=== PATIENT | female | born 1980 | race African-American/Black ===

== ENCOUNTER 2016-10-05 12:52 | Emergency (ER) | payer OTHER ==
[~2016-10-05] VITALS: Ht 162.6 cm; Wt 84.8 kg
[~2016-10-05 12:52] MED LIST: MECL25TA3 PO; ONDA4TAB10 PO
[2016-10-05] MEDS ORDERED: IV NORMAL SALINE 1,000ML 1,000 ML IV ONE (13:45)
[2016-10-05 13:58] LABS: BARBITURATES NEG (NEG); BENZODIAZEPINES NEG (NEG); CANNABINOIDS POS (NEG); COCAINE NEG (NEG); METHADONE NEG (NEG); OPIATES NEG (NEG); PHENCYCLIDINE NEG (NEG)
[2016-10-05 13:59] LABS: AMPHETAMINE/METHAMPHETAMINE NEG (NEG)
[2016-10-05 14:12] LABS: BACTERIA,URINE FEW /HPF (0-FEW); BILIRUBIN,URINE NEG (NEG); CLARITY,URINE HAZY; COLOR,URINE YELLOW; GLUCOSE,URINE NEG (NEG); NITRITE,URINE NEG (NEG); RBC,URINE 0 /HPF (0-2); SQUAMOUS EPITHELIAL CELL,UR FEW /LPF; UROBILINOGEN,URINE 0.2 mg/dL (0.2 mg/dL); WBC,URINE RARE /HPF (0-4)
[2016-10-05 14:14] LABS: BASO # 0.1 x10^3/uL (0.0-0.2); BASO % 1 % (0-3); EOS # 0.1 x10^3/uL (0.0-0.7); EOS % 2 % (0-3); HEMATOCRIT 31.5 % (36.0-47.0); HEMOGLOBIN 10.6 g/dL (12.0-15.5); LYMPH # 1.7 x10^3/uL (1.0-4.8); LYMPH % 33 % (24-48); MEAN CORPUSCULAR HEMOGLOBIN 30 pg (25-35); MEAN CORPUSCULAR HGB CONC 34 g/dL (31-37); MEAN CORPUSCULAR VOLUME 88 fL (79-100); MONO # 0.3 x10^3/uL (0.0-1.1); MONO % 6 % (0-9); NEUT % 59 % (31-73); PLATELET COUNT 238 x10^3/uL (140-400); RED BLOOD COUNT 3.58 x10^6/uL (3.50-5.40); RED CELL DISTRIBUTION WIDTH 14.7 % (11.5-14.5); WHITE BLOOD COUNT 5.1 x10^3/uL (4.0-11.0)
--- NOTE | 2016-10-05 14:15 | EKG ---
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 RI6.01 Unconfirmed report Compared to ECG 07/04/2014 21:01:39 No significant changes Electronically Signed On 10-08-2016 9:53:05 CDT by Remy Mac
--- NOTE | 2016-10-05 14:18 | RAD ---
Indication: Dizziness and high blood pressure. Time of exam 1411 hours. FINDINGS: The heart size is normal. The lungs are clear. No pleural effusion or pneumothorax is identified. The pulmonary vascularity is normal. IMPRESSION: No acute abnormality detected.
[2016-10-05 14:21] LABS: CALCIUM 8.7 mg/dL (8.5-10.1); CREATININE 0.9 mg/dL (0.6-1.0); GFR 84.8; POTASSIUM 3.5 mmol/L (3.5-5.1)
[2016-10-05 15:10] VITALS: BP 137/89
--- NOTE | 2016-10-05 19:02 | ED.ADGEN ---
Past History Past Medical History: Hypertension, Hyperthyroid Past Surgical History: Alcohol Use: None Drug Use: None Adult General HPI HPI Patient is a 36-year-old woman, history of hypertension is medically managed, who presents emergency Department with a complaint of lightheadedness. Patient states that she become increasingly lightheaded are the past 3 days. She states that the sensation is worse with standing and moving from a lying to seated position. She states that she has remained well-hydrated, denies any chest pain , any shortness of breath, any nausea or vomiting, any focal weakness, numbness , tingling, vision changes, travel, procedures, ingestions, exposures, swelling extremities, rashes or other concerning symptoms. States that this is similar to when she was diagnosed with high blood pressure, however blood pressure hasn' t well controlled with oral medication. She states she is eating and drinking well. Denies any seasonal allergy or respiratory type symptoms. Denies any drugs , alcohol or cigarettes. Patient states that there is a possibility she could be . Review of Systems Review of Systems Constitutional: Denies fever or chills [] lightheadedness. Eyes: Denies change in visual acuity, redness, or eye pain [] HENT: Denies nasal congestion or sore throat [] Respiratory: Denies cough or shortness of breath [] Cardiovascular: No additional information not addressed in HPI [] GI: Denies abdominal pain, nausea, vomiting, bloody stools or diarrhea [] : Denies dysuria or hematuria [] Musculoskeletal: Denies back pain or joint pain [] Integument: Denies rash or skin lesions [] Neurologic: Denies headache, focal weakness or sensory changes [] Endocrine: Denies polyuria or polydipsia [] Current Medications Current Medications Current Medications Medications (Trade) Dose Ordered Sig/Ion Start Time Stop Time Status Last Admin Dose Admin Sodium Chloride 1,000 ml @ 1,000 mls/hr 1X ONCE 10/05/16 13:45 10/05/16 14:44 DC 10/05/16 14:15 1,000 MLS/HR Allergies Allergies Allergies Coded Allergies Type Severity Reaction Last Updated Verified No Known Drug Allergies 07/04/14 No Physical Exam Physical Exam Constitutional: Well developed, well nourished, no acute distress, non-toxic appearance. [] HENT: Normocephalic, atraumatic, bilateral external ears normal, oropharynx moist, no oral exudates, nose normal. [] Eyes: PERRLA, EOMI, conjunctiva normal, no discharge. [] Neck: Normal range of motion, no tenderness, supple, no stridor. [] Cardiovascular:Heart rate regular rhythm, no murmur, S1, S2, no rubs or gallops. [] Lungs & Thorax: Bilateral breath sounds clear to auscultation , no wheezing, rhonchi, rales. No chest or crepitus or tenderness. [] Abdomen: Bowel sounds normal, soft, no tenderness, no masses, no pulsatile masses. [] Skin: Warm, dry, no erythema, no rash. [] Back: No tenderness, no CVA tenderness. [] Extremities: No tenderness, no cyanosis, no clubbing, ROM intact, no edema. Negative Homans sign. [] Neurologic: Alert and oriented X 3, normal motor function, normal sensory function, no focal deficits noted. [] Psychologic: Affect normal, judgement normal, mood normal. [] Current Patient Data Vital Signs Vital Signs Date Time Temp Pulse Resp B/P (MAP) Pulse Ox O2 Delivery O2 Flow Rate FiO2 10/05/16 15:10 65 18 137/89 (105) 100 Room Air 10/05/16 12:55 98.5 Lab Results Laboratory Tests Test 10/05/16 13:00 10/05/16 13:55 Urine Collection Type Unknown Urine Color Yellow Urine Clarity Hazy Urine pH 5.5 Urine Specific [place] 1.020 Urine Protein Trace (NEG-TRACE) Urine Glucose (UA) Neg mg/dL (NEG) Urine Ketones (Stick) Trace mg/dL (NEG) Urine Blood Trace (NEG) Urine Nitrite Neg (NEG) Urine Bilirubin Neg (NEG) Urine Urobilinogen Dipstick 0.2 mg/dL (0.2 mg/dL) Urine Leukocyte Esterase Neg (NEG) Urine RBC 0 /HPF (0-2) Urine WBC Rare /HPF (0-4) Urine Squamous Epithelial Cells Few /LPF Urine Bacteria Few /HPF (0-FEW) Urine Mucus Mod /LPF Urine Opiates Screen Neg (NEG) Urine Methadone Screen Neg (NEG) Urine Barbiturates Neg (NEG) Urine Phencyclidine Screen Neg (NEG) Urine Amphetamine/Methamphetamine Neg (NEG) Urine Benzodiazepines Screen Neg (NEG) Urine Cocaine Screen Neg (NEG) Urine Cannabinoids Screen Pos (NEG) Urine Ethyl Alcohol Neg (NEG) White Blood Count 5.1 x10^3/uL (4.0-11.0) Red Blood Count 3.58 x10^6/uL (3.50-5.40) Hemoglobin 10.6 g/dL (12.0-15.5) L Hematocrit 31.5 % (36.0-47.0) L Mean Corpuscular Volume 88 fL (79-100) Mean Corpuscular Hemoglobin 30 pg (25-35) Mean Corpuscular Hemoglobin Concent 34 g/dL (31-37) Red Cell Distribution Width 14.7 % (11.5-14.5) H Platelet Count 238 x10^3/uL (140-400) Neutrophils (%) (Auto) 59 % (31-73) Lymphocytes (%) (Auto) 33 % (24-48) Monocytes (%) (Auto) 6 % (0-9) Eosinophils (%) (Auto) 2 % (0-3) Basophils (%) (Auto) 1 % (0-3) Neutrophils # (Auto) 3.0 x10^3uL (1.8-7.7) Lymphocytes # (Auto) 1.7 x10^3/uL (1.0-4.8) Monocytes # (Auto) 0.3 x10^3/uL (0.0-1.1) Eosinophils # (Auto) 0.1 x10^3/uL (0.0-0.7) Basophils # (Auto) 0.1 x10^3/uL (0.0-0.2) Sodium Level 139 mmol/L (136-145) Potassium Level 3.5 mmol/L (3.5-5.1) Chloride Level 105 mmol/L (98-107) Carbon Dioxide Level 25 mmol/L (21-32) Anion Gap 9 (6-14) Blood Urea Nitrogen 12 mg/dL (7-20) Creatinine 0.9 mg/dL (0.6-1.0) Estimated GFR (Cockcroft-Gault) 84.8 Glucose Level 104 mg/dL (70-99) H Calcium Level 8.7 mg/dL (8.5-10.1) Troponin I Quantitative < 0.017 ng/mL (0-0.055) EKG EKG EC: Sinus rhythm, heart rate 64 bpm, upright axis, QTC of 408, MS of 1:30 , QRS of 80, contrary normalities noted in the anterior septal leads, but no ST elevations or depressions, some flattening in lead 3 also noted, does not meet STEMI criteria. As interpreted by me. [] Radiology/Procedures Radiology/Procedures [] Impressions: [place] [id number] IMAGING REPORT Signed PATIENT: OSCAR SINGLETON ACCOUNT: [id number] : 1980 LOCATION: ER AGE: 36 SEX: F EXAM STATUS: PRE ER ORD. PHYSICIAN: SHEREE SABA DO REASON: Dizziness PROCEDURE: CHEST PA & LATERAL Indication: Dizziness and high blood pressure. Time of exam 1411 hours. FINDINGS: The heart size is normal. The lungs are clear. No pleural effusion or pneumothorax is identified. The pulmonary vascularity is normal. IMPRESSION: No acute abnormality detected. DICTATED AND SIGNED BY: SUSANNA PRADO MD DATE: 10/05/161415 CC: SHEREE SABA DO; OSIEL LOYD MD ~ Course & Med Decision Making Course & Med Decision Making Pertinent Labs and Imaging studies reviewed. (See chart for details) HCG is negative and the emergency department. Patient complaining of near- syncope, although she has no reports of chest pain, shortness of breath, or other concerning personal or family history regarding a concerning cardiac or pulmonary cause. However after discussion at bedside, due to the length patient' s symptoms will obtain laboratory studies, chest x-ray, ECG and administer IV fluids. Patient with positive orthostatics in the emergency department, so liter of normal saline, laboratory studies and imaging not reveal any evidence of concerning findings, after receiving the liter of fluid patient states that she is feeling much better, is no longer experiencing lightheadedness. Discussed with her that she also has some evidence of mild seasonal allergy symptoms, recommend use of bbuu-xyo-gedsorv medications such as fluticasone or loratadine to treat and prevent symptoms, and address the importance of staying well-hydrated, drink plenty of clear fluids. Patient voiced understanding and agreement with these instructions, states she is ready to go home at this time, is ambulating without difficulty and without recurrence of symptoms in the ED. States that she will follow-up with her primary care provider for additional evaluation as needed, and will return to the ED for concerning symptoms as discussed us. Patient discharged home in stable condition with plan as above. Final Impression Final Impression [] Problems: (1) Lightheadedness Dragon Disclaimer Dragon Disclaimer This electronic medical record was generated, in whole or in part, using a voice recognition dictation system. SHEREE SABA DO Oct 05, 2016 19:02
== END 2016-10-05 15:12 | disposition home or self-care (01) ==
LOC: ER 12:52
DX: R42 Dizziness and giddiness (principal); I10 Essential (primary) hypertension; E03.9 Hypothyroidism, unspecified
CPT/HCPCS: 36415; 71020; 80048; 80305; 80320; 81001; 81025; 84484; 85027; 93005; 96360; G0481; 99285-25; J7030

== ENCOUNTER 2016-10-09 10:18 | Emergency (ER) | payer OTHER ==
[~2016-10-09] VITALS: Ht 162.6 cm; Wt 75.7 kg
[2016-10-09 10:41] VITALS: BP 139/80
--- NOTE | 2016-10-09 10:58 | PHYS DOC ---
General Chief Complaint: ABDOMINAL PAIN Stated Complaint: N/V/D Time Seen by MD: 10:24 Source: patient Exam Limitations: no limitations Problems: History of Present Illness Initial Comments Patient is a 36-year-old female who comes the ED complaining of nausea vomiting and diarrhea. Patient states she had a pizza frozen pop or [employer] her son may last night which she didn't think was "all the way through. She her son and some others ate a cheesy only one ill today. She states she woke up this morning with epigastric discomfort and nausea, states she went to the restroom and had multiple episodes of diarrhea and vomiting. States she's had at least 15 episodes of loose watery stools she seen no blood in her stools or emesis. She denies focal abdominal pain complaints just generalized discomfort typically relieved with bowel movement or emesis. No fever chills sweats or myalgias no travel or other exotic or uncooked by mouth. No pre-arrival treatment patient is not vomiting and has no loose stools to this point in the ED. Timing/Duration: 24 hours Severity: moderate Modifying Factors: worse with eating, improves with medication Associated Symptoms: nausea/vomiting Allergies: Coded Allergies: No Known Drug Allergies (Unverified , 07/04/14) Past Medical History Medical History: no pertinent history Surgical History: no surgical history Family History Significant Family History: no pertinent family hx Review of Systems Constitutional: denies chills, denies diaphoresis, denies fever, denies malaise Respiratory: denies cough, denies shortness of breath Cardiovascular: denies chest pain, denies palpitations Gastrointestinal: see HPI Genitourinary: denies discharge, denies dysuria, denies frequency, denies hematuria Musculoskeletal: denies back pain, denies joint swelling, denies neck pain Psychiatric/Neurological: denies headache, denies numbness, denies paresthesia Physical Exam General Appearance: WD/WN, mild distress Eyes: bilateral eye normal inspection, bilateral eye PERRL, bilateral eye EOMI Ear, Nose, Throat: hearing grossly normal, normal ENT inspection, normal pharynx Neck: non-tender, supple Respiratory: normal breath sounds, no respiratory distress Cardiovascular: normal peripheral pulses, regular rate, rhythm Gastrointestinal: normal bowel sounds, soft (nondistended, generalized tenderness to palpation without rebound or guarding or mass negative McBurney negative Burnette) Back: no CVA tenderness, no vertebral tenderness Extremities: non-tender, normal inspection Neurologic/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 PHYSICIAN: CAMPOS WALKER DO REASON: n/v/d PROCEDURE: ACUTE ABDOMEN SERIES Acute abdomen series with chest, 3 views, 10/09/2016: History: Abdominal pain, nausea, vomiting, diarrhea There scattered air-fluid levels in the GI tract. These appear to lie predominantly within large bowel. The visualized bowel loops are not significantly distended. No free air is seen in the abdomen. There is no evidence of organomegaly. Lower pelvic calcifications are compatible with phleboliths. There is a mild thoracolumbar scoliosis. The heart size is normal. The lungs are clear. There is no evidence of pleural fluid. IMPRESSION: Scattered air-fluid levels in the colon compatible with history the of diarrhea and/or an ileus. DICTATED AND SIGNED BY: GABRIELLE SILVER MD DATE: 10/09/16 1132 CC: NELA MENA APRN; CAMPOS WALKER DO ~ Labs unremarkable no urine specimen submitted. I discussed findings with the patient overall reassuring. She states she is feeling much better with IV fluids and medications and is ready for discharge. She expressed agreement and understanding with the treatment plan. Departure Time of Disposition: 12:10 Disposition: 01 HOME, SELF-CARE Diagnosis: gastroenteritis, likely viral Condition: GOOD Patient Instructions: Viral Gastroenteritis, [id number] Additional Instructions: Off work through October 12, note given. Rest, no strenuous activity. Aggressive hydration with Gatorade or water. Clear liquids, advance to bland diet tomorrow slowly as tolerated. Prescription: Zofran ODT, dicyclomine take as directed. Follow-up with your doctor in 5-7 days if not better. Return to the ED with new or changing symptoms. CAMPOS WALKER DO Oct 09, 2016 10:58
[2016-10-09] MEDS ORDERED: IV NORMAL SALINE 1,000ML 1,000 ML IV SCH (10:59)
[2016-10-09] MEDS ORDERED: ONDANSETRON PF 4 MG/2 ML VIAL. IV ONE (11:30)
[2016-10-09] MEDS ORDERED: FAMOTIDINE 20 MG/2 ML VIAL IVP ONE (11:30)
--- NOTE | 2016-10-09 11:39 | RAD ---
Acute abdomen series with chest, 3 views, 10/09/2016: History: Abdominal pain, nausea, vomiting, diarrhea There scattered air-fluid levels in the GI tract. These appear to lie predominantly within large bowel. The visualized bowel loops are not significantly distended. No free air is seen in the abdomen. There is no evidence of organomegaly. Lower pelvic calcifications are compatible with phleboliths. There is a mild thoracolumbar scoliosis. The heart size is normal. The lungs are clear. There is no evidence of pleural fluid. IMPRESSION: Scattered air-fluid levels in the colon compatible with history the of diarrhea and/or an ileus.
[2016-10-09 11:41] LABS: BASO # 0.1 x10^3/uL (0.0-0.2); BASO % 1 % (0-3); EOS % 0 % (0-3); HEMATOCRIT 33.8 % (36.0-47.0); HEMOGLOBIN 11.4 g/dL (12.0-15.5); LYMPH # 1.2 x10^3/uL (1.0-4.8); LYMPH % 15 % (24-48); MEAN CORPUSCULAR HEMOGLOBIN 30 pg (25-35); MEAN CORPUSCULAR HGB CONC 34 g/dL (31-37); MEAN CORPUSCULAR VOLUME 88 fL (79-100); MONO # 0.3 x10^3/uL (0.0-1.1); MONO % 3 % (0-9); NEUT # 6.4 x10^3uL (1.8-7.7); NEUT % 81 % (31-73); PLATELET COUNT 287 x10^3/uL (140-400); RED BLOOD COUNT 3.85 x10^6/uL (3.50-5.40); RED CELL DISTRIBUTION WIDTH 14.2 % (11.5-14.5)
[2016-10-09 11:44] LABS: ALBUMIN 3.6 g/dL (3.4-5.0); ALBUMIN/GLOBULIN RATIO 0.8 (1.0-1.7); CALCIUM 8.8 mg/dL (8.5-10.1); CREATININE 0.8 mg/dL (0.6-1.0); GFR 97.1; POTASSIUM 3.6 mmol/L (3.5-5.1); TOTAL BILIRUBIN 0.1 mg/dL (0.2-1.0); TOTAL PROTEIN 8.2 g/dL (6.4-8.2)
== END 2016-10-09 12:17 | disposition home or self-care (01) ==
LOC: ER 10:18
DX: K52.9 Noninfective gastroenteritis and colitis, unspecified (principal)
CPT/HCPCS: 36415; 74022; 80053; 81025; 83690; 84484; 85027; 96361; 96374; 96375; 99285; J2405; S0028; J7030

== ENCOUNTER 2016-12-13 12:49 | Emergency (ER) | payer OTHER ==
[~2016-12-13] VITALS: Ht 162.6 cm; Wt 89.4 kg
[2016-12-13 13:00] VITALS: BP 129/79
--- NOTE | 2016-12-13 13:11 | PHYS DOC ---
Past History Past Medical History: Hypertension, Hyperthyroid Past Surgical History: Alcohol Use: None Drug Use: None Adult General Chief Complaint Chief Complaint: EYE PROBLEMS HPI HPI Patient is a 36 year old F who presents with itching on the skin around her right eye. She feels that she had an insect bite on her eyelid which has caused redness swelling and itchiness. She has no visual problems or other associated symptoms at this time Review of Systems Review of Systems Constitutional: Denies fever or chills [] Eyes: Denies change in visual acuity, redness, or eye pain [] HENT: Denies nasal congestion or sore throat [] Respiratory: Denies cough or shortness of breath [] Cardiovascular: No additional information not addressed in HPI [] GI: Denies abdominal pain, nausea, vomiting, bloody stools or diarrhea [] : Denies dysuria or hematuria [] Musculoskeletal: Denies back pain or joint pain [] Integument: Negative except history of present illness Neurologic: Denies headache, focal weakness or sensory changes [] Endocrine: Denies polyuria or polydipsia [] Current Medications Current Medications Reviewed Allergies Allergies Allergies Coded Allergies Type Severity Reaction Last Updated Verified No Known Drug Allergies 07/04/14 No Physical Exam Physical Exam Constitutional: Well developed, well nourished, no acute distress, non-toxic appearance. [] HENT: Normocephalic, atraumatic, bilateral external ears normal, oropharynx moist, no oral exudates, nose normal. [] Eyes: PERRLA, EOMI, conjunctiva normal, no discharge. [] Mild swelling and erythema of the right upper eyelid Neck: Normal range of motion, no tenderness, supple, no stridor. [] Cardiovascular:Heart rate regular rhythm, no murmur [] Lungs & Thorax: Bilateral breath sounds clear to auscultation [] Abdomen: Bowel sounds normal, soft, no tenderness, no masses, no pulsatile masses. [] Skin: Warm, dry, no erythema, no rash. [] Back: No tenderness, no CVA tenderness. [] Extremities: No tenderness, no cyanosis, no clubbing, ROM intact, no edema. [] Neurologic: Alert and oriented X 3, normal motor function, normal sensory function, no focal deficits noted. [] Psychologic: Affect normal, judgement normal, mood normal. [] EKG EKG [] Radiology/Procedures Radiology/Procedures [] Course & Med Decision Making Course & Med Decision Making Pertinent Labs and Imaging studies reviewed. (See chart for details) [] Dragon Disclaimer Dragon Disclaimer This chart was dictated in whole or in part using Voice Recognition software in a busy, high-work load, and often noisy Emergency Department environment. It may contain unintended and wholly unrecognized errors or omissions. Departure Departure: Impression: Primary Impression: Insect bite Disposition: HOME, SELF-CARE Condition: STABLE Referrals: NELA MENA APRN (PCP) Patient Instructions: Insect Bite Additional Instructions: Valeriano seen in the emergency room for an insect bite. No emergency medical condition was found. She was discharged in stable condition with recommendation to follow-up with her primary care doctor as needed Problem Qualifiers Primary Impression: Insect bite Encounter type: initial encounter Qualified Codes: W57.XXXA - Bitten or stung by nonvenomous insect and other nonvenomous arthropods, initial encounter FABRICE ESCOBAR MD Dec 13, 2016 13:11
== END 2016-12-13 13:19 | disposition home or self-care (01) ==
LOC: ER 12:55
DX: S00.261A Insect bite (nonvenomous) of right eyelid and periocular area, initial encounter (principal); E05.90 Thyrotoxicosis, unspecified without thyrotoxic crisis or storm; I10 Essential (primary) hypertension; W57.XXXA Bitten or stung by nonvenomous insect and other nonvenomous arthropods, initial encounter; Y93.89 Activity, other specified; Y99.8 Other external cause status; Y92.89 Other specified places as the place of occurrence of the external cause
CPT/HCPCS: 99281

== ENCOUNTER 2017-02-08 14:25 | Emergency (ER) | payer OTHER ==
[2017-02-08 14:45] VITALS: BP 136/81
[2017-02-08] MEDS ORDERED: HYDR-971 PO (15:08)
[2017-02-08] MEDS ORDERED: SULF1TAB24 PO (15:08)
--- NOTE | 2017-02-08 15:12 | PHYS DOC ---
General Chief Complaint: ABSCESS Stated Complaint: ABSCESS Time Seen by MD: 14:55 Source: patient Exam Limitations: no limitations Problems: History of Present Illness Initial Comments Patient is a 36-year-old female who comes in the ED complaining left axillary abscess. Patient states for the past several days she's had worsening discomfort in her left axilla with a red bump. It began draining yellow discharge last night and in the emergency department copious amounts of purulent drainage is noted. She denies fever chills sweats or myalgias and states she has had I/D for this in the past. Tetanus is up-to-date she has history of hypertension hypothyroid iron deficiency no immune deficiency known. Timing/Duration: other (4 days draining since yesterday) Severity: moderate Modifying Factors: worse with movement Associated Symptoms: other Allergies: Coded Allergies: acetaminophen (Verified Allergy, Unknown, rash, 02/08/17) oxycodone (Verified Allergy, Unknown, rash, 02/08/17) Past Medical History Medical History: hypertension (hypothyroid) Surgical History: noncontributory (CS) Family History Significant Family History: no pertinent family hx Social History Smoker: non-smoker Alcohol: none Drugs: none Review of Systems Constitutional: denies chills, denies diaphoresis, denies fever, denies malaise Respiratory: denies cough, denies shortness of breath Cardiovascular: denies chest pain, denies palpitations, denies syncope Gastrointestinal: denies abdominal pain, denies nausea, denies vomiting Musculoskeletal: denies back pain, denies joint swelling, denies neck pain Skin: see HPI Physical Exam General Appearance: WD/WN, no apparent distress Neck: non-tender, supple Respiratory: normal breath sounds, no respiratory distress Cardiovascular: normal peripheral pulses, regular rate, rhythm Extremities: other (left axilla with 2 cm Tender red abscess which is spontaneously draining purulent material.) Neurologic/Psychiatric: 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 I discussed prescription medications as well as abscess care, warm compresses etc. Patient agrees to follow-up with her doctor for culture results she expressed agreement and understanding with treatment plan. Departure Time of Disposition: 15:11 Disposition: 01 HOME, SELF-CARE Diagnosis: abscess left axilla drain Condition: GOOD Patient Instructions: Abscess, [id number] Additional Instructions: Warm compresses to the area 4-6 times daily. [id number] ibuprofen for baseline discomfort. Prescription: [place] 5 mg quantity 15, Bactrim DS Take medications with food to avoid nausea and vomiting. Follow-up with your doctor in 3-5 days for culture results and recheck. Return to the ED with new or changing symptoms. CAMPOS WALKER DO Feb 08, 2017 15:12
== END 2017-02-08 15:25 | disposition home or self-care (01) ==
LOC: ER 14:25
DX: L02.412 Cutaneous abscess of left axilla (principal); I10 Essential (primary) hypertension; E03.9 Hypothyroidism, unspecified; Z88.6 Allergy status to analgesic agent; Z88.5 Allergy status to narcotic agent
CPT/HCPCS: 87070; 99283

== ENCOUNTER 2017-05-07 13:44 | Emergency (ER) | payer OTHER ==
[~2017-05-07] VITALS: Ht 162.6 cm; Wt 89.4 kg
[~2017-05-07 13:44] MED LIST changes: +HYDR-971 PO; +SULF1TAB24 PO
[2017-05-07 13:54] VITALS: BP 150/105
--- NOTE | 2017-05-07 14:23 | EKG ---
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
--- NOTE | 2017-05-07 14:34 | PHYS DOC ---
Past History Past Medical History: Anxiety, Hypertension, Hyperthyroid Past Surgical History: No Surgical History, Alcohol Use: None Drug Use: None Adult General Chief Complaint Chief Complaint: CHEST PAIN [facility] HPI 36-year-old female patient states she has had intermittent episodes of substernal chest pain as an aching pain without radiation, shortness of breath, nausea, fever, palpitation, dizziness since yesterday that last about few minutes as a mild pain. Patient stated she had 2 episodes of chest pain yesterday and 2 episodes today. Patient states she became panicky after her chest pain yesterday that resolved spontaneously. Patient states she checked her blood pressure today and it was 150/93 and became panic about her high blood pressure and decided to come to ER. Patient denies any chest pain at the same time. Patient has had history of hypertension and taking 2 medications for hypertension. Review of Systems Review of Systems Constitutional: Denies fever or chills [] Eyes: Denies change in visual acuity, redness, or eye pain [] HENT: Denies nasal congestion or sore throat [] Respiratory: Denies cough or shortness of breath [] Cardiovascular: No additional information not addressed in HPI [] GI: Denies abdominal pain, nausea, vomiting, bloody stools or diarrhea [] : Denies dysuria or hematuria [] Musculoskeletal: Denies back pain or joint pain [] Integument: Denies rash or skin lesions [] Neurologic: Denies headache, focal weakness or sensory changes [] Endocrine: Denies polyuria or polydipsia [] All other systems were reviewed and found to be within normal limits, except as documented in this note. Allergies Allergies Allergies Coded Allergies Type Severity Reaction Last Updated Verified acetaminophen Allergy Unknown rash 02/08/17 Yes oxycodone Allergy Unknown rash 02/08/17 Yes Physical Exam Physical Exam Constitutional: Well developed, well nourished, no acute distress, non-toxic appearance, anxious. [] HENT: Normocephalic, atraumatic, bilateral external ears normal, oropharynx moist, no oral exudates, nose normal. [] Eyes: PERRLA, EOMI, conjunctiva normal, no discharge. [] Neck: Normal range of motion, no tenderness, supple, no stridor. [] Cardiovascular:Heart rate regular rhythm, no murmur [] Lungs & Thorax: Bilateral breath sounds clear to auscultation [] Abdomen: Bowel sounds normal, soft, no tenderness, no masses, no pulsatile masses. [] Skin: Warm, dry, no erythema, no rash. [] Back: No tenderness, no CVA tenderness. [] Extremities: No tenderness, no cyanosis, no clubbing, ROM intact, no edema. [] Neurologic: Alert and oriented X 3, normal motor function, normal sensory function, no focal deficits noted. [] Psychologic: Affect normal, judgement normal, mood normal. [] Current Patient Data Vital Signs Vital Signs Date Time Temp Pulse Resp B/P (MAP) Pulse Ox O2 Delivery O2 Flow Rate FiO2 05/07/17 13:54 98.2 81 18 100 Room Air EKG EKG EKG interpreted by me. EKG at 1359 showed normal sinus rhythm at rate of 78, no ST and T wave abnormality.[] Radiology/Procedures Radiology/Procedures [] Course & Med Decision Making Course & Med Decision Making Evaluation of patient in ER showed 36-year-old male patient with history of hypertension complaining of elevation of blood pressure of 150/92 and intermittent episodes of chest pain since yesterday. Patient had unremarkable physical exam and EKG. Patient had blood pressure of 150 at arrival to ER that decreased to 134/91 spontaneously. Patient instructed to continue her home medication follow with her primary care physician. Patient did not want to have blood test. Dragon Disclaimer Dragon Disclaimer This electronic medical record was generated, in whole or in part, using a voice recognition dictation system. Departure Departure: Impression: Primary Impression: Uncontrolled hypertension Additional Impressions: Panic attack Non-cardiac chest pain Disposition: HOME, SELF-CARE (At 1423) Condition: IMPROVED Referrals: NELA MENA APRN (PCP) Patient Instructions: Anxiety and Panic Attacks, Hypertension Additional Instructions: Continue current medication Follow-up with your primary care physician in 2 or 3 days Return to ER as needed Problem Qualifiers DAWN PASTOR MD May 07, 2017 14:34
== END 2017-05-07 14:42 | disposition home or self-care (01) ==
LOC: ER 13:44
DX: F41.0 Panic disorder [episodic paroxysmal anxiety] (principal); I10 Essential (primary) hypertension; E05.90 Thyrotoxicosis, unspecified without thyrotoxic crisis or storm; Z88.6 Allergy status to analgesic agent; Z88.5 Allergy status to narcotic agent
CPT/HCPCS: 93005; 99283-25

== ENCOUNTER 2021-02-16 07:33 | Emergency (ER) | payer SELFPAY ==
[~2021-02-16] VITALS: Ht 162.6 cm; Wt 63.6 kg
[~2021-02-16 07:33] MED LIST changes: +HYDR-3165 PO; -HYDR-971 PO; +MECL-75 PO; -MECL25TA3 PO
[2021-02-16 07:35] VITALS: BP 190/82
--- NOTE | 2021-02-16 07:46 | PHYS DOC ---
Past History Past Medical History: Anxiety, Hypertension, Hyperthyroid Past Surgical History: No Surgical History, Alcohol Use: None Drug Use: None Adult General HPI HPI Patient is a 40-year-old female presenting for abdominal pain. She has history of poor dentition globally. Reports developing tooth ache 2 days prior. She has been taking ibuprofen as scheduled on bottle without significant improvement in pain. She has no income, reports that by the time she wanted to seek care from a dentist it was yesterday evening and they were all shot. She is aware of [facility] dental pain she plans to establish care with this upcoming week. She is here for pain control. No fever, phonation changes or trouble tolerating secretions Review of Systems Review of Systems Fourteen body systems of review of systems have been reviewed. See HPI for pertinent positives and negative responses, other barrett all other systems are negative, non-pertinent or non-contributory Allergies Allergies Allergies Coded Allergies Type Severity Reaction Last Updated Verified acetaminophen Allergy Unknown rash 02/08/17 Yes oxycodone Allergy Unknown rash 02/08/17 Yes Physical Exam Physical Exam Constitutional: Well developed, well nourished, no acute distress, non-toxic appearance. HENT: Normocephalic, atraumatic, bilateral external ears normal, oropharynx moist with poor dentition globally, patient does have a broken tooth that is well-appearing otherwise and noninfected at position #21, no oral exudates, nose normal. Eyes: PERRLA, EOMI, conjunctiva normal, no discharge. Neck: Normal range of motion, no tenderness, supple, no stridor. Cardiovascular: Heart rate regular per monitor Lungs & Thorax: No respiratory distress or accessory muscle use, bilateral chest rise Abdomen: Abdomen soft, non-tender, bowel sounds present in all quadrants, no guarding or rebound, nonacute abdomen. Skin: Warm, dry, no erythema, no rash. Back: No tenderness, no CVA tenderness. Extremities: No tenderness, no cyanosis, no clubbing, ROM intact, no edema. Neurologic: Alert and oriented X 3, grossly normal motor & sensory function, no focal deficits noted. Psychologic: Affect normal, judgement normal, mood normal. EKG EKG [] Radiology/Procedures Radiology/Procedures [] Heart Score C/O Chest Pain: No Risk Factors: Risk Factors: DM, Current or recent (<one month) smoker, HTN, HLP, family history of CAD, obesity. Risk Scores: Risk Factors: DM, Current or recent (<one month) smoker, HTN, HLP, family history of CAD, obesity. Course & Med Decision Making Course & Med Decision Making ABCs unremarkable HPI physical exam unremarkable for any emergent or surgical issues No active dental infection at this time. Patient taking ibuprofen only, admits she is allergic to Percocet as it caused hives. She has taken Lortab in the past. I feel an extremely small dose of prescribed medication will benefit her until she can be seen by dentist for further/definitive management Strict return precautions discussed with good understanding by patient, all questions and concerns addressed prior to ER departure Gracy Disclaimer Gracy Disclaimer This electronic medical record was generated, in whole or in part, using a voice recognition dictation system. Departure Departure: Impression: Primary Impression: Pain due to dental caries Disposition: HOME / SELF CARE / HOMELESS Condition: STABLE Referrals: PCP,LAURA (PCP) Patient Instructions: Dental Pain Additional Instructions: You were seen for dental pain. There does not appear to be any infection at this time. Take Ibuprofen (600-800mg) and Tylenol (500-650mg) alternating every 4-6 hours to help with inflammation and pain while you contact a dentist for further care. You should return to the ED if you develop worsening pain, fever > 101, swelling, redness, or any other new or concerning symptoms. Unfortunately, your pain is not likely to improve without seeing a dentist for further evaluation and treatment of your poor dentition and dental caries. Scripts Hydrocodone Bit/Acetaminophen (HYDROCODONE-APAP 5-325 ) 1 Each Tablet 1 TAB PO PRN Q6HRS PRN for PAIN, #5 TAB 0 Refills Prov: ERNESTINA QUINTANA DO 02/16/21 ERNESTINA QUINTANA DO Feb 16, 2021 07:46
[2021-02-16] MEDS ORDERED: HYDR-2155 PO (07:56)
== END 2021-02-16 08:24 | disposition home or self-care (01) ==
LOC: ER 07:33
DX: K02.9 Dental caries, unspecified (principal); I10 Essential (primary) hypertension
CPT/HCPCS: 99283

== ENCOUNTER 2021-04-13 13:20 | Emergency (ER) | payer SELFPAY ==
[~2021-04-13] VITALS: Ht 162.6 cm; Wt 67.0 kg
[2021-04-13 13:20] VITALS: BP 150/84
[~2021-04-13 13:20] MED LIST changes: +HYDR-2155 PO
--- NOTE | 2021-04-13 14:05 | PHYS DOC ---
Past History Past Medical History: Anxiety, Hypertension, Hyperthyroid (JORDINJACOB IRONWORKER APPRENTICE) Past Surgical History: No Surgical History, (ROXJACOB Hagen IRONWORKER APPRENTICE) Alcohol Use: None Drug Use: None (JORDINJACOB Mckayla IRONWORKER APPRENTICE) Adult General Chief Complaint Chief Complaint: GENERALIZED BODY ACHES [facility] HPI Patient is a 40-year-old female patient with history of anxiety, hypertension, who presents to the ED today complaining of diarrhea, body aches and subjective fevers, symptoms began today. Patient states she did a home Covid test which was positive. She is in the ED with the boyfriend who is also positive. Patient denies any shortness of breath. (JACOB BRENNER Mckayla IRONWORKER APPRENTICE) Review of Systems Review of Systems Constitutional: Reports subjective fevers, body aches Eyes: Denies change in visual acuity, redness, or eye pain [] HENT: Denies nasal congestion or sore throat [] Respiratory: Denies cough or shortness of breath [] Cardiovascular: No additional information not addressed in HPI [] GI: Reports diarrhea. Denies abdominal pain, nausea, vomiting, bloody stools : Denies dysuria or hematuria [] Musculoskeletal: Denies back pain or joint pain [] Integument: Denies rash or skin lesions [] Neurologic: Denies headache, focal weakness or sensory changes [] All other systems were reviewed and found to be within normal limits, except as documented in this note. (ROXHieuJACOB Mckayla IRONWORKER APPRENTICE) Allergies Allergies Allergies Coded Allergies Type Severity Reaction Last Updated Verified acetaminophen Allergy Unknown rash 02/08/17 Yes oxycodone Allergy Unknown rash 02/08/17 Yes (ROXJACOB Hagen IRONWORKER APPRENTICE) Physical Exam Physical Exam Constitutional: Well developed, well nourished, no acute distress, non-toxic appearance. [] HENT: Normocephalic, atraumatic, bilateral external ears normal, oropharynx moist, no oral exudates, nose normal. [] Eyes: PERRLA, EOMI, conjunctiva normal, no discharge. [] Neck: Normal range of motion, no tenderness, supple, no stridor. [] Cardiovascular:Heart rate regular rhythm, no murmur [] Lungs & Thorax: Bilateral breath sounds clear to auscultation [] Abdomen: Bowel sounds normal, soft, no tenderness, no masses, no pulsatile masses. [] Skin: Warm, dry, no erythema, no rash. [] Back: No tenderness, no CVA tenderness. [] Extremities: No tenderness, no cyanosis, no clubbing, ROM intact, no edema. [] Neurologic: Alert and oriented X 3, normal motor function, normal sensory function, no focal deficits noted. [] Psychologic: Affect normal, judgement normal, mood normal. [] (JACOB BRENNER APRN) Current Patient Data Vital Signs Vital Signs Date Time Temp Pulse Resp B/P (MAP) Pulse Ox O2 Delivery O2 Flow Rate FiO2 04/13/21 13:20 98.1 84 150/84 (106) 99 Room Air 04/13/21 13:20 18 (JACOB BRENNER APRN) EKG EKG [] (JACOB BRENNER APRN) Radiology/Procedures Radiology/Procedures [] (JACOB BRENNER APRN) Heart Score C/O Chest Pain: N/A Risk Factors: Risk Factors: DM, Current or recent (<one month) smoker, HTN, HLP, family history of CAD, obesity. Risk Scores: Risk Factors: DM, Current or recent (<one month) smoker, HTN, HLP, family history of CAD, obesity. (JACOB BRENNER APRN) Course & Med Decision Making Course & Med Decision Making Pertinent Labs and Imaging studies reviewed. (See chart for details) This a 40-year-old female patient presenting to the ED today with diarrhea, subjective fevers and body aches, symptoms began today, patient had a home Covid test +3 days ago which was positive. Supportive care measures recommended. Discharge to home. Provided return precautions (JACOB BRENNER APRN) Dragon Disclaimer Dragon Disclaimer This electronic medical record was generated, in whole or in part, using a voice recognition dictation system. (JACOB BRENNER APRN) Attending Co-Sign The patient was seen and interviewed as well as examined at the bedside. The chart was reviewed. The case was discussed. Agree with the plan of care. (OMAR SON DO) Departure Departure: Impression: Primary Impression: COVID-19 virus RNA test result positive at limit of detection Additional Impressions: Diarrhea Body aches Disposition: 01 HOME / SELF CARE / HOMELESS Condition: STABLE Referrals: PCP,NO (PCP) follow up with your doctor next week Patient Instructions: Diarrhea, [id number], Viral Syndrome Additional Instructions: You were evaluated in the emergency room with Covid symptoms. We encourage you to rest, push fluids, take Tylenol or Motrin for pain or fever. Push fluids. Follow up with your doctor in one week Problem Qualifiers Additional Impressions: Diarrhea Diarrhea type: unspecified type Qualified Codes: R19.7 - Diarrhea, unspec ified JACOB BRENNER APRN Apr 13, 2021 14:05 OMAR SON DO Apr 14, 2021 14:33
== END 2021-04-13 14:19 | disposition home or self-care (01) ==
LOC: ER 13:20
DX: U07.1 COVID-19 (principal); R19.7 Diarrhea, unspecified; I10 Essential (primary) hypertension; F41.9 Anxiety disorder, unspecified; Z88.6 Allergy status to analgesic agent; Z88.5 Allergy status to narcotic agent
CPT/HCPCS: 99282-25